=== PATIENT | male | born 2000 ===

== ENCOUNTER 2021-10-04 00:13 | Emergency (ER) | payer SELFPAY ==
[~2021-10-04] VITALS: Ht 167.6 cm; Wt 69.5 kg
[2021-10-04 05:48] VITALS: BP 108/74
== END 2021-10-04 06:25 | disposition left against medical advice (07) ==
LOC: M ED 00:13
DX: Z53.21 Procedure and treatment not carried out due to patient leaving prior to being seen by health care provider (principal)